=== PATIENT | male | born 1965 | race Caucasian/White ===

== ENCOUNTER 2017-01-26 23:50 | Inpatient (IN) | payer BC ==
--- NOTE | ~2017-01-26 | HP ---
History And Physical [id number] [place]. [address] NAME: SAPNA ZHENG : 67 STATUS : ADM Alcides PAT#: [id number] AGE: 51 ADM/REG DATE : 01/27/17 MR#: [id number] REPORT SERV DATE: 01/27/17 DICTATED BY: FAUSTO KRISHNAMURTHY DATE: 01/27/17 REPORT STATUS : Draft TRANSCRIBED BY: MODL DATE: 01/27/17 DATE OF ADMISSION: 01/26/2017 POINT OF ENTRY: [facility] Emergency Department. CHIEF COMPLAINT: Foot pain. HISTORY OF PRESENT ILLNESS: Mr. Zheng is a 51-year-old gentleman with history of insulin- dependent diabetes mellitus type 2 with recent hemoglobin C A1c of 9.4, as well as hypertension, hyperlipidemia, and psoriatic arthritis who presents to the emergency room today with a three to four-day history of left foot pain with associated redness. The patient states that he was sherin over the weekend. He denies any known trauma or puncture wounds to his feet but did have some superficial skin sloughing of his feet secondary to his feet sweating in the closed environment of the shoe while he was sherin. Beginning on Tuesday, the patient started to notice some tenderness on the lateral aspect of the plantar surface of his foot and then shortly afterwards started to develop some associated some redness. Over the week, the pain worsened. The redness also worsened and started to streak up the distal aspect of his lower extremity prompting his presentation to the emergency department. He denies any fevers, night sweats, chills, cough, sputum production, shortness of breath, chest pain, abdominal pain, nausea, vomiting, diarrhea, constipation, melena, hematochezia, or hemoptysis. Initial evaluation in the emergency department for labs notable for a white count 27598. Plain films of the left foot; formal report of radiology is pending at time of dictation but no obvious foreign body or cortical bone breakdown. Labs notable for a blood sugar of 317. He was subsequently admitted to the Hospitalist Service for further evaluation and management after starting on antibiotics of vancomycin and Zosyn. COMPREHENSIVE REVIEW OF SYSTEMS: Otherwise negative unless listed in history of present illness. PAST MEDICAL HISTORY: 1. Insulin-dependent diabetes mellitus type 2. Hemoglobin A1c of 9.4. 2. Hypertension. 3. Hyperlipidemia. 4. Gastroesophageal reflux disease. 5. Psoriatic arthritis. 6. Neurogenic bladder requiring self-catheterization. 7. History of benign spinal cord tumor status post resection. 8. History of hepatitis B infection. SURGICAL HISTORY: History And Physical [address] [address] NAME: SAPNA ZHENG : 67 STATUS : ADM Alcides PAT#: [id number] AGE: 51 ADM/REG DATE : 01/27/17 MR#: [id number] REPORT SERV DATE: 01/27/17 DICTATED BY: FAUSTO KRISHNAMURTHY DATE: 01/27/17 REPORT STATUS : Draft TRANSCRIBED BY: MODKsenia DATE: 01/27/17 1. Cholecystectomy. 2. Left ankle surgery. 3. Benign spinal tumor resection. ALLERGIES: NO KNOWN DRUG ALLERGIES. HOME MEDICATIONS: Pending at time of dictation. SOCIAL HISTORY: He denies any tobacco, alcohol, or illicits. FAMILY MEDICAL HISTORY: Mother with diabetes, coronary disease, and end-stage renal disease. Father with hypertension and COPD. LABS AND IMAGIN. White count 12.4, hemoglobin 16.2, hematocrit 44.5, platelet count 300. 2. Sodium is 135, potassium 4.0, chloride 97, carbon dioxide 28, BUN 15, creatinine 1.10, glucose is 317, calcium 7.8, albumin is 3.6, protein 6.9, ALT is 66, AST 29, alkaline phosphatase is 122, bilirubin is 0.5. 3. Plain films of the left foot per my review shows no foreign body or cortical bony destruction but formal report is pending at time of dictation. PHYSICAL EXAMINATION: VITAL SIGNS: Temperature is 98.3 degrees Fahrenheit, pulse is 90, respirations 22, saturating 97% on room air. Blood pressure is 166/87. GENERAL: The patient is awake, alert, in no acute distress. Resting comfortably. He is a well-developed, well-nourished, male. HEENT: Atraumatic and normocephalic. Moist mucous membranes. Pupils are equal, round, reactive to light and accommodation. Extraocular eye movements are intact. No scleral icterus. NECK: No jugular venous distention. No carotid bruits. CARDIAC: Regular rate and rhythm. No murmurs or gallops. Normal S1, S2. LUNGS: Clear to auscultation bilaterally. No wheezes, rhonchi, or crackles. ABDOMEN: Soft, nontender, nondistended. Good bowel sounds. No rebound, guarding, or rigidity. EXTREMITIES: Right lower extremity is warm and perfused. No cyanosis, clubbing, or edema. Left lower extremity; on the lateral aspect of the plantar surface of his foot, there is some very mild erythema which does appear to streak to the dorsal surface of his foot. The lateral aspect of his plantar surface of the foot just proximal to the fifth metatarsal head is extremely tender to touch. There is no palpable fluid collection. There is no obvious skin breakdown. There is possibly evidence of a small puncture wound around that area. SKIN: Warm and dry except for noted above. PSYCH: Affect appropriate. NEURO: Alert and oriented x3. Cranial nerves 2 through 12 grossly intact. Speech is normal. Gait not assessed. ASSESSMENT AND PLAN: Mr. Zheng is 51-year-old gentleman, who presents with a three to four-day history of left foot pain, erythema as well as some swelling concerning for left History And Physical [address] [address] NAME: SAPNA ZHENG : 67 STATUS : ADM Alcides PAT#: [id number] AGE: 51 ADM/REG DATE : 01/27/17 MR#: [id number] REPORT SERV DATE: 01/27/17 DICTATED BY: FAUSTO KRISHNAMURTHY DATE: 01/27/17 REPORT STATUS : Draft TRANSCRIBED BY: MODKsenia DATE: 01/27/17 lower extremity cellulitis as well as diabetic foot infection with possible concern for osteomyelitis. PROBLEM LIST: 1. Left lower extremity cellulitis and diabetic foot infection. 2. Leukocytosis. 3. Insulin-dependent diabetes mellitus type 2 with hyperglycemia. 4. Transaminitis. PLAN: 1. Left lower extremity cellulitis and diabetic foot infection. We will admit the patient to Hospitalist Service, place the patient empirically on IV vancomycin and Zosyn. We will check an MRI of the lower extremity in the morning to rule out deeper space infection such as osteomyelitis, also checking ESR, CRP. We will consult Podiatry in the morning for assistance. 2. Insulin-dependent diabetes mellitus type 2 with hyperglycemia. We will continue the patient's home insulin regimen, hold his oral hypoglycemics. We will place him on a level 2 sliding scale, check hemoglobin A1c as well as diabetic consultation. 3. Transaminitis. The patient reports a history of hepatitis B infection in the past although he has never had transaminitis before per review of [employer]. We will check a viral hepatitis panel. 4. Leukocytosis, likely secondary to left lower extremity cellulitis and diabetic foot infection. Checking urinalysis given history of neurogenic bladder. 5. DVT prophylaxis. Lovenox subcutaneous. CODE STATUS: The patient wishes to be full code. JCB/MODL Fausto Krishnamurthy MD / [id number] CC: Sayra Jackson M.D.
--- NOTE | ~2017-01-26 | DS ---
Discharge Summary [facility] [address] [facility] [place]. [address] NAME: SAPNA CASTILLO : 67 STATUS : DIS Alcides PAT#: [id number] AGE: 51 ADM/REG DATE : 01/27/17 MR#: [id number] REPORT SERV DATE: 01/29/17 DICTATED BY: AARON JAEGER DATE: 01/29/17 REPORT STATUS : Draft TRANSCRIBED BY: MODL DATE: 01/29/17 ADMISSION DATE: 01/27/2017 DISCHARGE DATE: 01/29/2017 VENTILATED RIB FITTER: Dr. Clarence Tapia, Foot Surgery. DISCHARGE DIAGNOSES: 1. Acute cellulitis and myositis of the left foot below the 5th toe. 2. Diabetes mellitus type 2 with peripheral neuropathy and A1c 9%. 3. Psoriatic arthritis, on Humira. 4. Hypertension. 5. Tobacco use with snuff. 6. Gastroesophageal reflux disease. 7. Neurogenic bladder. 8. Previous benign spinal tumor, age 3. 9. Chronic back pain. 10.Obesity with body mass index 32.9. 11.Questionable history of hepatitis B in the past. The patient had a history of previous spinal tumor at age 3. He has diabetes that he developed as an adult. He has peripheral neuropathy. He has had a left foot injury in the past. He has significant abnormalities of the positioning of his foot with some footdrop on that left side probably related to the previous spinal cord tumor years ago. He has noticed about three or four days of increasing redness and pain below the left 5th toe. On the weekend, he had been doing some sherin at his house and he had some superficial skin sloughing there, but no obvious trauma. On Tuesday of this week, he went to work, but noticed increased tenderness on the plantar surface of that left foot. It just got worse and worse and by the next day, he came to the emergency room where he was found to have redness, swelling, exquisite pain below the left 5th MTP, white count of 12.4, blood sugar 317. He was referred to our team for inpatient care. He also had erythema coming up in that left inner calf, so he underwent a venous Doppler of that left leg which revealed no evidence of deep vein thrombosis. X-ray of the left foot revealed deformity of the foot suggesting old trauma. No osteomyelitis changes. MRI of the left foot revealed no abscess, no osteomyelitis, and there were chronic changes. We did have him on vancomycin and Zosyn. Dr. Tapia of Podiatry was consulted. He came to bedside, examined the patient, and felt he needed some superficial incision and drainage, which was done there at bedside. A small amount of purulent drainage was sent for cultures. The blood cultures x2 had no growth. That left foot wound had no evidence for acid-fast bacilli and staining. The culture per the lab today looks like group B strep with a small amount of staph. Fungal and final AFB cultures pending. The patient had dramatic improvement with erythema improving in his calf and foot and dramatic reduction of pain in that foot. Discharge Summary [id number] [facility] [address] [place]. [address] NAME: SAPNA CASTILLO : 67 STATUS : DIS Alcides PAT#: [id number] AGE: 51 ADM/REG DATE : 01/27/17 MR#: [id number] REPORT SERV DATE: 01/29/17 DICTATED BY: AARON JAEGER DATE: 01/29/17 REPORT STATUS : Draft TRANSCRIBED BY: JAYLEN DATE: 01/29/17 The patient was told by Podiatry foot surgeon Dr. Tapia to not bear weight on that at this time and not to go back to work for four weeks. So I filled out a short-term disability paperwork for the patient at the day of discharge. He is also going to get a knee walker to more safely get around. In future, Dr. Tapia anticipates a specialty brace for that foot and shoe as well to try to relieve pressure points. DISCHARGE MEDICATIONS: Will include Norvasc 10 mg daily, Lipitor 40 mg daily, Iodosorb gel applied to the wound daily, hydrochlorothiazide 25 mg daily, Lantus 21 units at bedtime, Cozaar 100 mg daily, metoprolol 25 mg twice a day, Prilosec 20 mg daily, Florastor one p.o. b.i.d. x3 weeks, Humira we are asking him to suspend this until Dr. Tapia thinks it is okay to resume, Zoloft 50 mg daily, Tylenol 650 q.4 hours p.r.n. minor pain, Percocet 5/325 t.i.d. p.r.n. significant pain, #15 prescribed, cefadroxil 1000 mg p.o. b.i.d. for seven days. The patient is to follow up with Dr. Tapia in about a week and with his PCP Dr. Sayra Jackson in about 1-2 weeks. PCP to monitor and make sure sugars are improved after the infection is under control. The patient also will follow up with Dr. Painter of Rheumatology. I spent 58 minutes today with the patient and with his with discharge planning. RSG/MODL Aaron Jaeger M.D. / [id number] CC: Maria G Morales M.D. Richard Brackett, M.D. C. Jason Wamack, D.PYaquelin
--- NOTE | ~2017-01-26 | CN ---
Consultation Report [facility] [address] [place]. [address] NAME: SAPNA CASTILLO : 67 STATUS : ADM Alcides PAT#: [id number] AGE: 51 ADM/REG DATE : 01/27/17 MR#: [id number] REPORT SERV DATE: 01/28/17 DICTATED BY: JOSEPH MCMAHON DATE: 01/27/17 REPORT STATUS : Draft TRANSCRIBED BY: MODL DATE: 01/27/17 CONSULTATION DATE OF CONSULTATION: 01/27/2017 HISTORY OF PRESENT ILLNESS: The patient is a 51-year-old, uncontrolled diabetic male, who relates progressive foot pain over the past five-seven days. The patient relates he noticed pain as he points underneath the left fifth metatarsal head that started last week, but progressed after sherin over the weekend. Denies any history of trauma to the foot, but does have a history of "spinal tumor" that has caused weakness into his feet and legs. The patient states that this week he noticed red streaking and swelling, and severe pain to the left foot. Denies nausea, vomiting, fever, or chills. PAST MEDICAL HISTORY: Includes insulin-dependent diabetes, uncontrolled hypertension, hyperlipidemia, GERD, psoriatic arthritis, neurogenic bladder, hepatitis B. SURGICAL HISTORY: Cholecystectomy, benign spinal tumor resection, left ankle surgery. MEDICATIONS: List of medications were reviewed in the chart. SOCIAL HISTORY: Denies alcohol, tobacco, or drug use. However, chewing tobacco visualized at bedside. FAMILY HISTORY: Diabetes, coronary artery disease, end-stage renal disease, hypertension, COPD. REVIEW OF SYSTEMS: No other pertinent findings on review of systems other than stated above. Denies shortness of breath. Denies chest pain. Denies nausea, vomiting, fever, or chills. PHYSICAL EXAMINATION: GENERAL: The patient is seen at bedside, resting comfortably, with at bedside. The patient is awake, alert, and oriented x3, in no apparent distress. Well-developed white male. HEENT: Atraumatic, normocephalic. No visible drainage. CARDIOVASCULAR: Regular rate. Capillary refill time less than 3 seconds. Digits 1 through 10 tested. Palpable pedal pulses. LUNGS: Unlabored breathing with normal respiratory effort. ABDOMEN: Nondistended. NEUROLOGIC: Severe cavus foot deformity is noted bilaterally, left greater than right. Muscle strength is 1/5 with dorsiflexion, 1/5 with plantar flexion, 0/5 with inversion and eversion. DERMATOLOGICAL: There is localized edema and erythema to the patient's left 5th metatarsophalangeal joint region. There is a callus formation noted to the left sub 5th metatarsal head. Upon de-sherin with a #10 blade, a scant drainage is appreciated Consultation Report [id number] [facility] [place]. [address] NAME: SAPNA CASTILLO : 67 STATUS : ADM Alcides PAT#: [id number] AGE: 51 ADM/REG DATE : 01/27/17 MR#: [id number] REPORT SERV DATE: 01/28/17 DICTATED BY: JOSEPH MCMAHON DATE: 01/27/17 REPORT STATUS : Draft TRANSCRIBED BY: JAYLEN DATE: 01/27/17 underneath the left sub 5th met head. Partial-thickness ulceration was present. There is no probing to bone. There is minimal necrosis. There is no soft tissue crepitus noted. No tracking noted. Cultures were taken of the scant purulence which was expressed. LABS: WBC 12.4. Hemoglobin A1c 9. MRI shows no osteomyelitis, no deep abscess. ASSESSMENT: 1. Uncontrolled diabetes. 2. Left partial-thickness ulceration with superficial abscess formation. 3. Left foot cellulitis. 4. Left foot drop secondary to spinal cord tumor surgery. PLAN: Today, bedside sharp debridement with a #10 blade was performed. The skin drainage/purulence was cultured, which I sent for aerobic, anaerobic, acid-fast, fungal, Gram stain. Wound care instructions were ordered and the patient will follow up me on an outpatient basis. This was discussed with hospitalist Dr. Jaeger regarding antibiotic treatment and the patient subjectively is significantly better in the past 12 hours. The patient will follow up with me on an outpatient basis. LINWOOD/JAYLEN Quintin LuuPYaquelin / [id number] CC: Maria G Morales M.D.
[2017-01-26 22:04] LABS: BASOPHILS 0.5 %; BASOPHILS ABSOLUTE 0.06 10/3/uL (0.0-0.16); EOSINOPHILS ABSOLUTE 0.25 10/3/uL (0.0-0.53); ER CBC TAT 0 Hrs 07 Mins; HEMATOCRIT 44.5 % (40.0-51.0); HEMOGLOBIN 16.2 g/dL (13.6-17.8); IMMATURE GRANULOCYTES 0.2 %; IMMATURE GRANULOCYTES ABSOLUTE 0.03 10/3/uL (0.0-0.11); LYMPHOCYTES 22.5 %; LYMPHOCYTES ABSOLUTE 2.78 10/3/uL (0.67-4.30); MANUAL DIFF NO %; MEAN CORPUS HGB CONC 36.4 g/dL (32.0-36.0); MEAN CORPUSCULAR HEMOGLOB 31.4 pg (26.0-34.0); MEAN CORPUSCULAR VOLUME 86.2 fL (80-100); MEAN PLATELET VOLUME 10.2 fL (9.2-13.0); MONOCYTES 6.6 %; MONOCYTES ABSOLUTE 0.82 10/3/uL (0.21-1.20); NEUTROPHILS 68.2 %; NEUTROPHILS ABSOLUTE 8.42 10/3/uL (2.02-8.40); PLATELET COUNT 300 10/3/uL (150-400); RBC DISTRIBUTION WIDTH 12.5 % (12.0-16.0); RED CELL COUNT 5.16 10/6/uL (4.7-6.1); WHITE BLOOD CELLS 12.4 10/3/uL (4.5-10.5)
[2017-01-26 22:20] LABS: ALBUMIN 3.6 G/DL (3.5-5.0); CALCIUM, SERUM 7.8 MG/DL (8.5-10.4); CHLORIDE, SERUM 97 MMOL/L (96-112); CO2 (CARBON DIOXIDE) 28 MMOL/L (24-34); GFR AFRICAN AMERICAN 90 ML/MIN (>=60); GFR NON AFRICAN AMERICAN 78 ML/MIN (>=60); SODIUM, SERUM 135 MMOL/L (135-148); TOTAL BILIRUBIN 0.5 MG/DL (0-1.2)
[2017-01-26 22:22] LABS: ALKALINE PHOSPHATASE 122 U/L (45-117); GLUCOSE, SERUM 317 MG/DL (60-99); SGOT(AST) 29 U/L (5-40); SGPT(ALT) 66 U/L (5-65)
[2017-01-26 22:37] LABS: A/G RATIO 1.1 (0.7-1.9); BUN (BLOOD UREA NITROGEN) 15 MG/DL (6-23); GLOBULIN 3.3 G/DL (2.5-4.1); TOTAL PROTEIN 6.9 G/DL (6.0-8.5)
[~2017-01-26 23:50] MED LIST: *UNABLE1; *UNABLE3; CAT1 PO; CLONIDINE PO; COZAAR100 MG PO; GLUCPH PO; GLUMETZA500 MG PO; HYDROCHLOROT25 MG PO; IBU400 PO; LOFIBRA134 MG PO; LOP25 PO; LOSARTAN PO; METFORMIN PO; MICROZIDE PO; NORCO1 TA1 PO; NORV10 PO; PR25 PO; PRILOSEC40 MG PO; ZOLOFT25 MG PO
[2017-01-27] MEDS ORDERED: HUMIRA PEN SC (05:06)
[2017-01-27] MEDS ORDERED: VOLT75 PO (05:07)
[2017-01-27] MEDS ORDERED: PRILO PO (05:11)
[2017-01-27] MEDS ORDERED: LIPITOR40 PO (05:12)
[2017-01-27] MEDS ORDERED: ZOL50 PO (05:13)
[2017-01-27] MEDS ORDERED: HYDROCHLOROT25 MG PO (05:14)
[2017-01-27] MEDS ORDERED: LANTUSCART SC (05:17)
[2017-01-27 09:45] LABS: HEPATITIS B SURFACE ANTIGEN NON-REACTIVE (NON-REACT)
[2017-01-27 10:13] LABS: HEPATITIS B CORE AB IGM NON-REACTIVE (NON-REAC); HEPATITIS C ANTIBODY NON-REACTIVE (NON-REACT)
[2017-01-27 10:15] LABS: HEP A ANTIBODY IGM NON-REACTIVE (NON-REACT)
[2017-01-28 04:54] LABS: BASOPHILS 0.6 %; BASOPHILS ABSOLUTE 0.04 10/3/uL (0.0-0.16); EOSINOPHILS ABSOLUTE 0.35 10/3/uL (0.0-0.53); HEMATOCRIT 43.9 % (40.0-51.0); HEMOGLOBIN 15.2 g/dL (13.6-17.8); IMMATURE GRANULOCYTES 0.4 %; IMMATURE GRANULOCYTES ABSOLUTE 0.03 10/3/uL (0.0-0.11); LYMPHOCYTES 38.9 %; MEAN CORPUS HGB CONC 34.6 g/dL (32.0-36.0); MEAN CORPUSCULAR HEMOGLOB 29.9 pg (26.0-34.0); MEAN CORPUSCULAR VOLUME 86.4 fL (80-100); MEAN PLATELET VOLUME 10.2 fL (9.2-13.0); MONOCYTES 9.8 %; MONOCYTES ABSOLUTE 0.68 10/3/uL (0.21-1.20); NEUTROPHILS 45.3 %; NEUTROPHILS ABSOLUTE 3.14 10/3/uL (2.02-8.40); PLATELET COUNT 263 10/3/uL (150-400); RBC DISTRIBUTION WIDTH 12.9 % (12.0-16.0); RED CELL COUNT 5.08 10/6/uL (4.7-6.1)
[2017-01-28 04:57] LABS: WHITE BLOOD CELLS 6.9 10/3/uL (4.5-10.5)
[2017-01-28 04:58] LABS: MANUAL DIFF NO %
[2017-01-28 05:10] LABS: BUN (BLOOD UREA NITROGEN) 17 MG/DL (6-23); CALCIUM, SERUM 8.4 MG/DL (8.5-10.4); CHLORIDE, SERUM 102 MMOL/L (96-112); CO2 (CARBON DIOXIDE) 29 MMOL/L (24-34); CREATININE 0.97 MG/DL (0.70-1.30); GFR AFRICAN AMERICAN 105 ML/MIN (>=60); GFR NON AFRICAN AMERICAN 91 ML/MIN (>=60); GLUCOSE, SERUM 198 MG/DL (60-99); POTASSIUM, SERUM 4.2 MMOL/L (3.5-5.3); SODIUM, SERUM 138 MMOL/L (135-148)
[2017-01-29] MEDS ORDERED: IODOSORB TOP (11:51)
[2017-01-29] MEDS ORDERED: FLORASTOR250 MG PO (11:58)
[2017-01-29] MEDS ORDERED: T PO (11:59)
[2017-01-29] MEDS ORDERED: DURICEF PO (12:02)
[2017-01-29] MEDS ORDERED: PCET PO (12:03)
== END 2017-01-29 13:48 | disposition home or self-care (01) | DRG 623 ==
LOC: ER 23:50 → 1SO 01-27 03:42
PROVIDERS: Emergency Medicine; Internal Medicine
PROC: 0HBNXZZ Excision of Left Foot Skin, External Approach (ICD-10-PCS; principal; 2017-01-27)
DX: E11.628 Type 2 diabetes mellitus with other skin complications (principal); L03.116 Cellulitis of left lower limb; I10 Essential (primary) hypertension; L02.612 Cutaneous abscess of left foot; E11.621 Type 2 diabetes mellitus with foot ulcer; E11.42 Type 2 diabetes mellitus with diabetic polyneuropathy; E11.65 Type 2 diabetes mellitus with hyperglycemia; K21.9 Gastro-esophageal reflux disease without esophagitis; G89.29 Other chronic pain; M54.9 Dorsalgia, unspecified; N31.9 Neuromuscular dysfunction of bladder, unspecified; M60.9 Myositis, unspecified; L40.50 Arthropathic psoriasis, unspecified; F17.290 Nicotine dependence, other tobacco product, uncomplicated; E66.9 Obesity, unspecified; Z68.32 Body mass index [BMI] 32.0-32.9, adult; E78.5 Hyperlipidemia, unspecified; M21.372 Foot drop, left foot; Z79.4 Long term (current) use of insulin; Z79.899 Other long term (current) drug therapy; Z28.20 Immunization not carried out because of patient decision for unspecified reason
CPT/HCPCS: 73630-LT; 73721-LT; 80048; 80053; 80074; 82962; 83036; 85025; 85652; 86140; 86706; 87015; 87040; 87070; 87075; 87102; 87116; 87205; 93971; 99285; A9270-GY; J2405; J2543; J3370